=== PATIENT | male | born 1995 | race Caucasian/White ===

== ENCOUNTER 2019-05-01 17:27 | Emergency (ER) | payer SELFPAY ==
[~2019-05-01] VITALS: Ht 180.3 cm; Wt 113.4 kg
[~2019-05-01 17:27] MED LIST: AUGMENTIN ES-6050 ML PO; CIPROFLOXACIN500 MG PO; CLARITIN10 MG PO; HYDROCODONE BIT1 T11 PO; IBU800 MG PO; KEFLEX500 MG PO; MELATONIN SL; MOTRIN CHI100 MG/51 PO; MOTRIN400 MG PO; MOTRIN600 MG PO; MOTRIN800 MG PO; PROZAC20 MG PO; REMERON15 M2 PO; SEPTRA 200 MG/100 ML PO; SEPTRA DS 800 M1 TAB PO; TRAZADONE; ZITHROMAX Z PA250 MG PO; ZOFRAN ODT4 MG SL; ZOFRAN4 MG PO; ZOFRAN4 MG/5 ML PO; [UNRECOGNIZED DRUG - OTHER]
[2019-05-01] MEDS ORDERED: CEFDINIR300 MG PO (17:36)
== END 2019-05-01 17:47 | disposition home or self-care (01) ==
LOC: ED 17:27
DX: H66.92 Otitis media, unspecified, left ear (principal)

== ENCOUNTER 2019-12-30 13:24 | Emergency (ER) | payer SELFPAY ==
[~2019-12-30] VITALS: Ht 180.3 cm; Wt 113.4 kg
[~2019-12-30 13:24] MED LIST changes: +CEFDINIR300 MG PO
[2019-12-30 14:39] LABS: BASO % 0.2 % (0.0-1.0); EOS # 0.1 10*3/uL (0.0-0.4); EOS % 0.4 % (1.0-4.0); HEMATOCRIT 46.7 % (42.0-52.0); LYMPH # 2.7 10*3/uL (1.3-4.4); LYMPH % 22.2 % (27.0-41.0); MEAN CELL VOLUME 78.6 fl (80.0-94.0); MEAN CORPUSCULAR HGB 27.6 pg (27.0-31.0); MEAN CORPUSCULAR HGB CONC 35.1 g/dl (33.0-37.0); MEAN PLATELET VOLUME 9.1 fl (9.6-12.3); MONO # 0.8 10*3/uL (0.1-1.0); MONO % 6.2 % (3.0-9.0); NEUT # 8.5 10*3/uL (2.3-7.9); NEUT % 70.6 % (47.0-73.0); PLATELET COUNT AUTOMATED 275 10*3/uL (130-400); RED BLOOD COUNT 5.94 10*6/uL (4.50-5.90); RED CELL DISTRI WIDTH 12.3 % (0-14.5); WHITE BLOOD COUNT 12.1 10*3/uL (4.8-10.8)
[2019-12-30 15:02] LABS: ALBUMIN 4.2 gm/dl (3.1-4.5); ALKALINE PHOSPHATASE 75 U/L (45-117); BUN 10 mg/dl (7-24); CHLORIDE 103 mmol/L (98-107); CREATININE 0.88 mg/dL (0.70-1.30); LIPASE 60 U/L (73-393); POTASSIUM 3.4 mmol/L (3.5-5.1); SGOT/AST 37 IU/L (3-35); SGPT/ALT 70 U/L (12-78); SODIUM 137 mmol/L (136-145)
[2019-12-30 15:08] LABS: CLARITY SL CLOUDY (CLEAR); COLOR STRAW (YELLOW)
[2019-12-30 15:09] LABS: BACTERIA TRACE; BILIRUBIN NEGATIVE (NEGATIVE); BLOOD NEGATIVE (NEGATIVE); CALCIUM OXALATE CRYSTALS 2+; EPITHELIAL CELLS 0-2; GLUCOSE NEGATIVE (NEGATIVE); KETONE 3+ (NEGATIVE); LEUKO ESTERASE NEGATIVE (NEGATIVE); MUCOUS 3+; NITRITE NEGATIVE (NEGATIVE); RBC 0-2 rbc/hpf (0-2); SPECIFIC GRAVITY 1.025 (1.005-1.030); UROBILINOGEN 0.2 E.U./dl (0.2-1.0); WBC 0-2 wbc/hpf (0-5)
[2019-12-30] MEDS ORDERED: ZOFRAN4 MG PO (16:33)
== END 2019-12-30 16:47 | disposition home or self-care (01) ==
LOC: ED 13:24
PROVIDERS: Nurse Practitioner Family
DX: A08.4 Viral intestinal infection, unspecified (principal); Z79.899 Other long term (current) drug therapy

== ENCOUNTER 2020-05-30 06:22 | Emergency (ER) | payer OTHER ==
[~2020-05-30] VITALS: Ht 177.8 cm; Wt 90.7 kg
[2020-05-30] MEDS ORDERED: ZOFRAN4 MG PO (06:41)
== END 2020-05-30 08:48 | disposition home or self-care (01) ==
LOC: ED 06:22
DX: K52.9 Noninfective gastroenteritis and colitis, unspecified (principal); Z79.899 Other long term (current) drug therapy

== ENCOUNTER 2020-10-10 12:22 | Emergency (ER) | payer OTHER ==
[~2020-10-10] VITALS: Wt 99.8 kg
[2020-10-10] MEDS ORDERED: CORTISPORIN SUS10 ML OT (13:03)
== END 2020-10-10 13:08 | disposition home or self-care (01) ==
LOC: ED 12:22
DX: H61.22 Impacted cerumen, left ear (principal); F17.200 Nicotine dependence, unspecified, uncomplicated; Z79.899 Other long term (current) drug therapy

== ENCOUNTER 2021-05-24 10:39 | Emergency (ER) | payer OTHER ==
[~2021-05-24 10:39] MED LIST changes: +CORTISPORIN SUS10 ML OT
== END 2021-05-24 12:03 | disposition left against medical advice (07) ==
LOC: ED 10:39
DX: R11.2 Nausea with vomiting, unspecified (principal); Z53.21 Procedure and treatment not carried out due to patient leaving prior to being seen by health care provider

== ENCOUNTER 2021-06-15 13:36 | Emergency (ER) | payer OTHER ==
[~2021-06-15] VITALS: Ht 170.1 cm; Wt 113.4 kg
[2021-06-15] MEDS ORDERED: Motrin,Rufen800 MG PO (18:45)
[2021-06-15] MEDS ORDERED: CYCLOBENZAPRINE5 M3 PO (18:45)
== END 2021-06-15 19:49 | disposition home or self-care (01) ==
LOC: ED 13:36
DX: S16.1XXA Strain of muscle, fascia and tendon at neck level, initial encounter (principal); S39.012A Strain of muscle, fascia and tendon of lower back, initial encounter; V49.49XA Driver injured in collision with other motor vehicles in traffic accident, initial encounter; Y93.89 Activity, other specified; Y92.89 Other specified places as the place of occurrence of the external cause; Y99.8 Other external cause status

== ENCOUNTER 2021-08-25 09:05 | Emergency (ER) | payer OTHER ==
[~2021-08-25] VITALS: Wt 99.8 kg
[~2021-08-25 09:05] MED LIST changes: +CYCLOBENZAPRINE5 M3 PO; +Motrin,Rufen800 MG PO
== END 2021-08-25 11:47 | disposition home or self-care (01) ==
LOC: ED 09:05
DX: B34.9 Viral infection, unspecified (principal); Z20.822 Contact with and (suspected) exposure to COVID-19

== ENCOUNTER 2022-01-19 08:29 | Emergency (ER) | payer OTHER ==
[~2022-01-19] VITALS: Wt 99.8 kg
[2022-01-19 08:58] LABS: BASO % 0.2 % (0.0-1.0); EOS # 0.2 10*3/uL (0.0-0.4); EOS % 1.9 % (1.0-4.0); HEMATOCRIT 47.1 % (42.0-52.0); LYMPH # 1.9 10*3/uL (1.3-4.4); MEAN CELL VOLUME 78.6 fl (80.0-94.0); MEAN CORPUSCULAR HGB 27.5 pg (27.0-31.0); MEAN PLATELET VOLUME 9.5 fl (9.6-12.3); MONO # 0.6 10*3/uL (0.1-1.0); MONO % 6.6 % (3.0-9.0); NEUT # 6.6 10*3/uL (2.3-7.9); NEUT % 71.1 % (47.0-73.0); PLATELET COUNT AUTOMATED 277 10*3/uL (130-400); RED BLOOD COUNT 5.99 10*6/uL (4.50-5.90); RED CELL DISTRI WIDTH 12.7 % (0-14.5); WHITE BLOOD COUNT 9.3 10*3/uL (4.8-10.8)
[2022-01-19 09:20] LABS: ALKALINE PHOSPHATASE 83 U/L (45-117); BUN 8 mg/dl (7-24); CHLORIDE 106 mmol/L (98-107); CREATININE 0.98 mg/dL (0.70-1.30); LIPASE 131 U/L (73-393); POTASSIUM 3.7 mmol/L (3.5-5.1); SGOT/AST 32 IU/L (3-35); SGPT/ALT 80 U/L (12-78); SODIUM 140 mmol/L (136-145); TOTAL PROTEIN 7.5 gm/dL (6.4-8.2)
[2022-01-19] MEDS ORDERED: ZOFRAN4 MG PO (11:10)
== END 2022-01-19 11:22 | disposition home or self-care (01) ==
LOC: ED 08:29
PROVIDERS: Family Medicine
DX: A08.4 Viral intestinal infection, unspecified (principal); Z90.89 Acquired absence of other organs

== ENCOUNTER 2023-06-24 17:15 | Emergency (ER) | payer OTHER ==
[~2023-06-24] VITALS: Ht 155.4 cm; Wt 99.8 kg
[2023-06-24] MEDS ORDERED: TIZANIDINE HCL4 MG PO (18:43)
[2023-06-24] MEDS ORDERED: FAMOTIDINE40 MG PO (18:43)
== END 2023-06-24 19:00 | disposition home or self-care (01) ==
LOC: ED 17:15
DX: M54.41 Lumbago with sciatica, right side (principal); M54.42 Lumbago with sciatica, left side; K21.9 Gastro-esophageal reflux disease without esophagitis; M62.830 Muscle spasm of back

== ENCOUNTER 2024-01-16 15:26 | Emergency (ER) | payer SELFPAY ==
[~2024-01-16] VITALS: Ht 175.2 cm; Wt 99.8 kg
[~2024-01-16 15:26] MED LIST changes: +FAMOTIDINE40 MG PO; +TIZANIDINE HCL4 MG PO
== END 2024-01-16 17:23 | disposition left against medical advice (07) ==
LOC: ED 15:26
DX: R11.2 Nausea with vomiting, unspecified (principal); R19.7 Diarrhea, unspecified; R10.9 Unspecified abdominal pain; Z53.21 Procedure and treatment not carried out due to patient leaving prior to being seen by health care provider

== ENCOUNTER 2024-09-24 17:08 | Emergency (ER) | payer SELFPAY ==
[~2024-09-24] VITALS: Ht 170.1 cm; Wt 113.4 kg
[2024-09-24] MEDS ORDERED: AMOX-CLAV 875-1 EACH PO (17:44)
[2024-09-24] MEDS ORDERED: Amoxicillin/Clavulanate Pota 875 MG TAB PO ONE (17:45)
== END 2024-09-24 17:43 | disposition home or self-care (01) ==
LOC: ED 17:08
DX: H66.91 Otitis media, unspecified, right ear (principal); K21.9 Gastro-esophageal reflux disease without esophagitis

== ENCOUNTER 2025-01-27 05:43 | Emergency (ER) | payer BC ==
[~2025-01-27] VITALS: Ht 170.1 cm; Wt 113.4 kg
[~2025-01-27 05:43] MED LIST changes: +AMOX-CLAV 875-1 EACH PO
[2025-01-27] MEDS ORDERED: Ketorolac Tromethamine 60 MG/2 ML VIAL IM ONE (05:55)
[2025-01-27] MEDS ORDERED: METHOCARBAMOL 750 MG TAB PO ONE (05:55)
[2025-01-27] MEDS ORDERED: METHOCARBAMOL750 M1 PO (05:59)
[2025-01-27] MEDS ORDERED: NAPROXEN250 MG PO (05:59)
== END 2025-01-27 06:10 | disposition home or self-care (01) ==
LOC: ED 05:43
DX: S39.012A Strain of muscle, fascia and tendon of lower back, initial encounter (principal); Z79.899 Other long term (current) drug therapy; X58.XXXA Exposure to other specified factors, initial encounter; Y93.89 Activity, other specified; Y92.89 Other specified places as the place of occurrence of the external cause; Y99.8 Other external cause status

== ENCOUNTER 2025-06-22 15:03 | Emergency (ER) | payer BC ==
[~2025-06-22] VITALS: Ht 170.1 cm; Wt 99.8 kg
[~2025-06-22 15:03] MED LIST changes: +METHOCARBAMOL750 M1 PO; +NAPROXEN250 MG PO
[2025-06-22] MEDS ORDERED: FLUORESCEIN SODIUM 1 MG STRIP OPH ONE (15:40)
[2025-06-22] MEDS ORDERED: TOBRAMYCIN 3.5 GM TUBE OPH ONE (16:10)
[2025-06-22] MEDS ORDERED: TOBREX3.5 GM OPH (16:12)
== END 2025-06-22 17:48 | disposition home or self-care (01) ==
LOC: ED 15:03
DX: S05.02XA Injury of conjunctiva and corneal abrasion without foreign body, left eye, initial encounter (principal); W89.0XXA Exposure to welding light (arc), initial encounter; Y93.89 Activity, other specified; Y92.89 Other specified places as the place of occurrence of the external cause; Y99.8 Other external cause status

== ENCOUNTER 2025-08-24 14:59 | Emergency (ER) | payer BC ==
[~2025-08-24] VITALS: Ht 180.3 cm; Wt 113.4 kg
[~2025-08-24 14:59] MED LIST changes: +TOBREX3.5 GM OPH
[2025-08-24] MEDS ORDERED: PREDNISONE50 MG PO (15:23)
[2025-08-24] MEDS ORDERED: Acetaminophen/Hydrocodone 5 MG/325 MG TABLET PO ONE (15:25)
== END 2025-08-24 15:32 | disposition home or self-care (01) ==
LOC: ED 14:59
DX: M54.42 Lumbago with sciatica, left side (principal); F90.9 Attention-deficit hyperactivity disorder, unspecified type